=== PATIENT | male | born 1955 | race Two or more races ===

== ENCOUNTER 2024-05-16 08:28 | Outpatient (CLI) | payer OTHER | END 2024-05-16 08:38 | disposition home or self-care (01) | LOC: TOM 08:28 | PROVIDERS: ATTEND Otolaryngology | DX: R05.9 Cough, unspecified (principal); R22.1 Localized swelling, mass and lump, neck | CPT/HCPCS: 70491; 71260; Q9965 ==

== ENCOUNTER 2025-02-19 14:47 | Outpatient (CLI) | payer OTHER | END 2025-02-19 14:59 | disposition home or self-care (01) | LOC: SONOGRAMA 14:47 | PROVIDERS: ATTEND Otolaryngology | DX: E04.9 Nontoxic goiter, unspecified (principal) ==